=== PATIENT | male | born 1995 | race Caucasian/White ===

== ENCOUNTER 2017-08-31 01:36 | Emergency (ER) | payer OTHER ==
[~2017-08-31] VITALS: Ht 172.7 cm; Wt 65.9 kg
[2017-08-31 01:42] VITALS: TEMP 36.9; Ht 172.7 cm; Wt 65.9 kg
[2017-08-31] MEDS ORDERED: XYLOCAINE 1%/SOD BICARB 20 ML VIAL INFIL ONE (02:05)
[2017-08-31 02:51] VITALS: BP 112/70; PULSE 69; O2SAT 99
--- NOTE | 2017-09-01 07:35 | EMERGENCY ROOM VISIT NOTE ---
ED Visit Note First contact with patient: 01:54 CHIEF COMPLAINT: Left ear laceration HISTORY OF PRESENT ILLNESS: This 22 year old male patient presents to the emergency department after cutting the left ear just prior to arrival. The patient was downtown with friends and evidently cut his ear on a garbage dumpster just prior to arrival. The bleeding has stopped. Denies weakness or numbness of the face. The patient rates the pain as dull and 5/10. The patient denies any other injuries. The patient's Tetanus shot is reportedly up to date. REVIEW OF SYSTEMS: A 6 system review of systems was completed with positives and pertinent negatives listed in the HPI. ALLERGIES: No known allergies MEDICATIONS: No chronic medications PMH: Otherwise healthy SOCIAL HISTORY: Lives locally. Student. PHYSICAL EXAM: Vital Signs: Reviewed Nurse's notes, vital signs stable. GENERAL : White male, in no acute distress, well-developed, well-nourished. SKIN: There is a 1.0 cm long laceration on the superior anterior left ear. This is not a through and through laceration that is essentially just above the tragus. The edges gape apart with traction. There is no foreign material in the wound and it looks clean. There is no significant bleeding. No deep structures such as tendons, bones, or significant blood vessels are seen in the base of the wound. Normal strength and movement of the face and jaw. Capillary refill less than 2 seconds. Normal sensation to light and sharp touch. EMERGENCY DEPARTMENT COURSE: I examined the patient. Verbal consent was obtained to perform the procedure. Using sterile technique the wound was cleansed with Betadine. The area was sterilely draped. 2 ml of 1% buffered lidocaine was used to anesthetize the laceration on the left ear. Once the patient was anesthetized, the wound was copiously irrigated under pressure with sterile saline. The wound was explored and was as described above. The laceration was repaired using 3 simple interrupted 5-0 nylon sutures with the wound edges being well approximated. The patient tolerated the procedure well. Hemostasis was achieved. The area was cleaned with sterile saline and dressed with bacitracin ointment and bandage. The patient was discharged home in good condition. Current/Historical Medications No Active Prescriptions or Reported Meds Allergies Coded Allergies: No Known Allergies (Unverified , 08/31/17) Vital Signs Date Time Temp Pulse Resp B/P (MAP) Pulse Ox O2 Delivery O2 Flow Rate FiO2 08/31/17 02:51 69 20 112/70 99 08/31/17 01:42 36.9 66 20 116/74 98 Room Air Departure Information Impression Primary Impression: Laceration of left ear Dispostion Home / Self-Care Condition GOOD Prescriptions No Active Prescriptions or Reported Meds Forms HOME CARE DOCUMENTATION FORM, IMPORTANT VISIT INFORMATION Patient Instructions My [facility], ED Laceration All, ED Scar Tips to Minimize Additional Instructions Keep wound clean and dry. Do not allow any crusting or dried blood to accumulate on sutures. If this occurs, use a mild soap/water on a Q-tip to clean the wound. Do not use Peroxide to clean the wound as this can delay healing Use an antibiotic ointment like Bacitracin for 3-4 days, then let wound dry. You may bathe and shower as normal, but DO NOT SOAK the wound. Suture removal in about 8-10 days with S, your Family Doctor, or in the ER. Return sooner for any signs of infection, increasing redness, swelling, or drainage.
== END 2017-08-31 02:53 | disposition home or self-care (01) ==
LOC: C.EDB 01:40 → C.EDC 02:53
DX: S01.312A Laceration without foreign body of left ear, initial encounter (principal); W26.8XXA Contact with other sharp object(s), not elsewhere classified, initial encounter

== ENCOUNTER 2017-09-18 15:28 | Emergency (ER) | payer OTHER ==
[~2017-09-18] VITALS: Ht 172.7 cm; Wt 65.0 kg
[2017-09-18 15:33] VITALS: BP 114/72; PULSE 54; TEMP 36.7; O2SAT 96; Ht 172.7 cm; Wt 65.0 kg
--- NOTE | 2017-09-18 15:43 | EMERGENCY ROOM VISIT NOTE ---
ED Visit Note First contact with patient: 15:34 CHIEF COMPLAINT: Removal of sutures HISTORY OF PRESENT ILLNESS: This 22-year-old male patient presents to the emergency department for removal of sutures from their left ear. The sutures were placed 18 days ago. There have been no signs of infection. The patient denies any pain. REVIEW OF SYSTEMS: A review of systems was performed with positives and pertinent negatives listed in the history of present illness. All other systems were reviewed and are negative. ALLERGIES: No known drug allergies MEDICATIONS: Unchanged from previous visit. PMH: Unchanged from previous visit. SOCIAL HISTORY: Patient is a [employer] student. PHYSICAL EXAM: VITALS: Vitals are noted on the nurse's note and reviewed by myself. Vital signs stable. GENERAL: This is a 22-year-old male, in no acute distress, nondiaphoretic, well- developed well-nourished. SKIN: There is a well-healing sutured wound on the left ear with no signs of infection. EMERGENCY DEPARTMENT COURSE: The patient was evaluated as above. Sutures were removed from the left ear with no dehiscence. There is no evidence of infection. Scar reduction measures were discussed the the patient. They verbalized understanding and were discharged home in good condition. DIAGNOSIS: Encounter for suture removal DISCHARGE INSTRUCTIONS & TREATMENT: Wash the remaining crusts off the wound. Keep the wound covered with SPF for the next 6 months to reduce scarring. Once the wound has fully healed, you may apply Vitamin E oil, cocoa butter, or any over the counter scar reducing formulations daily. Current/Historical Medications No Active Prescriptions or Reported Meds Allergies Coded Allergies: No Known Allergies (Unverified , 08/31/17) Vital Signs Date Time Temp Pulse Resp B/P (MAP) Pulse Ox O2 Delivery O2 Flow Rate FiO2 09/18/17 15:33 36.7 54 16 114/72 96 Room Air Departure Information Impression Primary Impression: Encounter for removal of sutures Dispostion Home / Self-Care Condition GOOD Prescriptions No Active Prescriptions or Reported Meds Referrals No Doctor, Assigned (PCP) Patient Instructions My [facility] Additional Instructions Wash the remaining crusts off the wound. Keep the wound covered with SPF for the next 6 months to reduce scarring. Once the wound has fully healed, you may apply Vitamin E oil, cocoa butter, or any over the counter scar reducing formulations daily.
== END 2017-09-18 15:48 | disposition home or self-care (01) ==
LOC: C.EDB 15:29 → C.EDD 15:48
DX: Z48.02 Encounter for removal of sutures (principal)